=== PATIENT | female | born 1995 | race Caucasian/White ===

== ENCOUNTER 2023-08-31 18:03 | Emergency (ER) | payer OTHER ==
[~2023-08-31] VITALS: Ht 165.1 cm; Wt 61.0 kg
[2023-08-31 18:13] VITALS: TEMP 98.4; O2SAT 100
[2023-08-31 20:02] VITALS: BP 114/53; PULSE 66; RESP 20
[2023-08-31] MEDS: IBUPROFEN 600MG TABLET PO STA (20:02)
[2023-09-01] MEDS ORDERED: ONDA4TAB11 PO (17:23)
== END 2023-09-01 01:14 | disposition home or self-care (01) ==
LOC: ER 18:03
DX: S06.0X0A Concussion without loss of consciousness, initial encounter (principal); R42 Dizziness and giddiness; W18.39XA Other fall on same level, initial encounter; Y93.89 Activity, other specified; Y92.89 Other specified places as the place of occurrence of the external cause; Y99.8 Other external cause status
CPT/HCPCS: 81025; 99284

== ENCOUNTER 2023-09-01 14:11 | Emergency (ER) | payer OTHER ==
[~2023-09-01] VITALS: Ht 167.6 cm; Wt 75.0 kg
[2023-09-01 14:24] VITALS: O2SAT 100
[2023-09-01 15:09] LABS: BASOPHILS % 0.5 % (0.0-2.0); EOSINOPHILS % 1.5 % (0.0-5.0); LYMPHOCYTES % 38.5 % (20.0-50.0); MEAN CORPUSCULAR HEMOGLOBIN 30.4 pg (28.0-32.0); MEAN CORPUSCULAR HGB CONC 33.3 g/dL (31.0-37.0); MEAN CORPUSCULAR VOLUME 91.2 fL (81.0-99.0); MONOCYTES % 7.3 % (2.0-8.0); NEUTROPHILS % 52.2 % (40.0-76.0); PLATELET 160 x1000/uL (130-400); RED BLOOD CELL COUNT 4.28 mill/uL (4.2-5.4); RED CELL DISTRIBUTION WIDTH 13.1 % (11.6-14.6); WHITE BLOOD COUNT 3.6 x1000/uL (4.5-11.0)
[2023-09-01 15:28] LABS: ALANINE AMINOTRANSFERASE 17 IU/L (10-49); ALBUMIN 4.4 g/dL (3.2-4.8); ASPARTATE AMINOTRANSFERASE 29 IU/L (<34); BILIRUBIN TOTAL 0.6 mg/dL (0.1-1.0); CALCIUM 8.7 mg/dL (8.7-10.4); CARBON DIOXIDE 29 mEq/L (21-32); CHLORIDE 104 mEq/L (98-107); GLUCOSE 108 mg/dL (70-105); PROTEIN TOTAL 7.9 g/dL (6.0-8.3); SODIUM 140 mEq/L (136-145); UREA NITROGEN BLOOD 12 mg/dL (9-23)
[2023-09-01 15:40] LABS: HCG SCREEN NEGATIVE
[2023-09-01] MEDS: SODIUM CHLORIDE 0.9% 1,000 ML IV ONE (15:48)
[2023-09-01] MEDS: ONDANSETRON HCL 4MG/2ML INJ IV ONE (15:48)
[2023-09-01] MEDS ORDERED: ONDA4TAB11 PO (17:23)
[2023-09-01 19:47] LABS: CLARITY URINE CLEAR (CLEAR); COLOR URINE YELLOW (YELLOW); GLUCOSE URINE NEGATIVE (NEGATIVE); KETONES URINE NEGATIVE (NEGATIVE); LEUKOCYTE ESTERASE URINE NEGATIVE (NEGATIVE); NITRITE URINE NEGATIVE (NEGATIVE); OCCULT BLOOD URINE NEGATIVE (NEGATIVE); PH URINE 7.5 (4.5-8.0); PROTEIN URINE NEGATIVE (NEGATIVE); SPECIFIC GRAVITY URINE 1.007 (1.005-1.030)
[2023-09-01 20:53] VITALS: BP 105/67; PULSE 84; RESP 16; TEMP 98.8
== END 2023-09-01 21:33 | disposition left against medical advice (07) ==
LOC: ER 14:11 → EDBEDREQ 19:08 → ER 21:33
DX: R55 Syncope and collapse (principal)
CPT/HCPCS: 99285; 96374; 96361; 80053; 81003; 82962; 84703; 85025; 36415; 93005; J2405; J7030